=== PATIENT | male | born 1985 | race African-American/Black ===

== ENCOUNTER 2017-08-20 17:35 | Emergency (ER) | payer SELFPAY ==
[2017-08-20 17:42] VITALS: BP 178/103; PULSE 90; RESP 16; TEMP 98.7; O2SAT 99
[2017-08-20 18:40] LABS: AUTOMATED NEUTROPHIL # 3.9 TH/MM3 (1.8-7.7); BASOPHIL % 0.3 % (0.0-2.0); EOSINOPHIL % 0.5 % (0.0-4.0); HEMATOCRIT 43.8 % (39.0-51.0); HEMOGLOBIN 14.9 GM/DL (13.0-17.0); LYMPH % 12.4 % (9.0-44.0); LYMPHOCYTE # 0.6 TH/MM3 (1.0-4.8); MEAN CELL VOLUME 91.4 FL (80.0-100.0); MEAN CORPUSCULAR HGB CONC 33.9 % (32.0-36.0); MEAN PLATELET VOLUME 9.5 FL (7.0-11.0); MONO % 6.2 % (0.0-8.0); MONOCYTE # 0.3 TH/MM3 (0-0.9); NEUT % 80.6 % (16.0-70.0); PLATELET COUNT 230 TH/MM3 (150-450); RED BLOOD COUNT 4.79 MIL/MM3 (4.50-5.90); RED CELL DISTRIBUTION WIDTH 14.1 % (11.6-17.2); WHITE BLOOD COUNT 4.8 TH/MM3 (4.0-11.0)
[2017-08-20 19:00] LABS: BICARBONATE 29.2 MEQ/L (21.0-32.0); CALCIUM 8.5 MG/DL (8.5-10.1); CREATININE 1.02 MG/DL (0.60-1.30)
[2017-08-20] MEDS ORDERED: DICY10 PO (22:52)
[2017-08-20] MEDS ORDERED: ZOFR4TAB PO (22:52)
== END 2017-08-20 19:02 | disposition left against medical advice (07) ==
LOC: NED 17:35
DX: R10.9 Unspecified abdominal pain (principal); Z53.21 Procedure and treatment not carried out due to patient leaving prior to being seen by health care provider
CPT/HCPCS: 80048; 83690; 85025; 85610; 85730; 99281

== ENCOUNTER 2017-08-20 19:12 | Emergency (ER) | payer OTHER ==
[~2017-08-20] VITALS: Ht 182.9 cm; Wt 113.9 kg
[2017-08-20 19:55] VITALS: BP 162/96; PULSE 84; RESP 18; TEMP 99.5; O2SAT 98
[2017-08-20 20:37] VITALS: BP 162/96; PULSE 84; RESP 18; TEMP 99.5; O2SAT 98
[2017-08-20] MEDS ORDERED: SODIUM CHLOR 0.9% 1000 ML INJ 1,000 ML IV ONE (20:45)
[2017-08-20] MEDS ORDERED: KETOROLAC TROMETHAMINE 30 MG/ML (IVP) VIAL IVP ONE (20:45)
[2017-08-20] MEDS ORDERED: SODIUM CHLORIDE 0.9% FLUSH 10 ML FLUSH IVF PRN (20:45)
[2017-08-20] MEDS ORDERED: MORPHINE SULFATE 4 MG/ML INJ IV PUSH ONE (20:45)
[2017-08-20] MEDS ORDERED: ONDANSETRON HCL 4 MG/2 ML VIAL IVP ONE (20:45)
[2017-08-20 20:57] LABS: BASOPHIL # 0.1 TH/MM3 (0-0.2); BASOPHIL % 1.4 % (0.0-2.0); EOSINOPHIL % 0.3 % (0.0-4.0); HEMATOCRIT 43.1 % (39.0-51.0); HEMOGLOBIN 14.1 GM/DL (13.0-17.0); LYMPH % 12.2 % (9.0-44.0); LYMPHOCYTE # 0.6 TH/MM3 (1.0-4.8); MEAN CELL VOLUME 89.3 FL (80.0-100.0); MEAN CORPUSCULAR HEMOGLOBIN 29.3 PG (27.0-34.0); MEAN CORPUSCULAR HGB CONC 32.8 % (32.0-36.0); MEAN PLATELET VOLUME 8.9 FL (7.0-11.0); MONO % 2.8 % (0.0-8.0); MONOCYTE # 0.1 TH/MM3 (0-0.9); NEUT % 83.3 % (16.0-70.0); PLATELET COUNT 215 TH/MM3 (150-450); RED BLOOD COUNT 4.82 MIL/MM3 (4.50-5.90); WHITE BLOOD COUNT 4.8 TH/MM3 (4.0-11.0)
[2017-08-20] MEDS ORDERED: MORPHINE SULFATE 2 MG/ML SYRINGE IM ONE (21:00)
[2017-08-20 21:04] VITALS: BP 171/94; PULSE 82; RESP 18; O2SAT 95
[2017-08-20 21:04] LABS: CHLORIDE 106 MEQ/L (98-107); SODIUM (NA) 137 MEQ/L (136-145)
[2017-08-20 21:08] LABS: ALBUMIN 3.7 GM/DL (3.4-5.0); BICARBONATE 23.2 MEQ/L (21.0-32.0); BLOOD UREA NITROGEN 12 MG/DL (7-18); CALCIUM 8.5 MG/DL (8.5-10.1); GLUCOSE,RANDOM 98 MG/DL (74-106)
[2017-08-20 21:11] LABS: ALT (GPT) 23 U/L (12-78); AST (GOT) 17 U/L (15-37); CREATININE 0.97 MG/DL (0.60-1.30); GLOMERULAR FILTRATION RATE 109 ML/MIN (>89)
[2017-08-20 21:13] LABS: TOTAL BILIRUBIN ADULT 0.5 MG/DL (0.2-1.0); TOTAL PROTEIN 8.1 GM/DL (6.4-8.2)
[2017-08-20 21:14] LABS: ALKALINE PHOSPHATASE 69 U/L (45-117)
--- NOTE | 2017-08-20 21:46 | RADRPT ---
EXAM DATE/TIME: 08/20/2017 21:08 [facility] COMPARISON: No previous studies available for comparison. INDICATIONS : Right flank pain. ORAL CONTRAST: No oral contrast ingested. RADIATION DOSE: 17.11 CTDIvol (mGy) MEDICAL HISTORY : None SURGICAL HISTORY : None. ENCOUNTER: Initial ACUITY: 1 day PAIN SCALE: 8/10 LOCATION: Right flank TECHNIQUE: Volumetric scanning of the abdomen and pelvis was performed. Using automated exposure control and ad justment of the mA and/or kV according to patient size, radiation dose was kept as low as reasonably achievable to obtain optimal diagnostic quality images. DICOM format image data is available electro nically for review and comparison. FINDINGS: Lung bases are clear. No acute findings in the liver, spleen, adrenals, kidneys or pancreas. No calci fied gallstones or biliary ductal dilatation. No free fluid. No bowel obstruction. No adenopathy. Degenerative changes of the sacroiliac joints. CONCLUSION: 1. No acute findings on abdomen and pelvic CT. Specifically no renal calculi or obstructive uropathy. Sriram Solomon MD on August 20, 2017 at 21:40 Board Certified Radiologist. This report was verified electronically.
--- NOTE | 2017-08-20 21:58 | PD ---
HPI . Abdominal pain Chief Complaint: Abdominal Pain Time Seen by Provider: 20:34 Travel History International Travel<30 days: No Contact w/Intl Traveler<30days: No Traveled to known affect area: No History of Present Illness HPI Patient presents with chief complaint of right upper quadrant abdominal pain. Onset was today. Pain is described as constant and sharp and rated 10/10. It is associated with nausea and poor appetite. Pain is unrelieved by Tylenol and ibuprofen. Pain is exacerbated by walking. The patient's reports recent complaints of abdominal pain which were brief and spontaneously resolved. The pain was located on the right side. [facility] Social History Tobacco Use: No Allergies-Medications (Allergen,Severity, Reaction): Coded Allergies: metoclopramide (Verified Adverse Reaction, Unknown, ANXIETY, 08/20/17) prochlorperazine (Verified Adverse Reaction, Unknown, ANXIETY, 08/20/17) Review of Systems Except as stated in HPI: all other systems reviewed are Neg General / Constitutional: Positive: Chills Gastrointestinal: Positive: Nausea, Vomiting, Abdominal Pain, No: Diarrhea Genitourinary: No: Urgency, Frequency, Dysuria Physical Exam Narrative GENERAL: Awake alert. He does appear to be in pain. SKIN: warm/dry. HEAD: Normocephalic. Atraumatic. EYES: Pupils equal and round. No scleral icterus. No injection or drainage. ENT: No nasal bleeding or discharge. Mucous membranes pink and moist. NECK: Trachea midline. Full range of motion without pain.. CARDIOVASCULAR: Regular rate and rhythm. Heart sounds normal. RESPIRATORY: No accessory muscle use. Clear to auscultation. Breath sounds equal bilaterally. GASTROINTESTINAL: Abdomen soft. Right upper quadrant tenderness with a positive Patten sign. No guarding or rebound. Bowel sounds present. Nondistended. : No CVA tenderness. MUSCULOSKELETAL: No obvious deformities. NEUROLOGICAL: Awake and alert. No obvious cranial nerve deficits. Motor grossly within normal limits. Normal speech. PSYCHIATRIC: Appropriate mood and affect; insight and judgment normal. Data Data Last Documented VS Vital Signs Date Time Temp Pulse Resp B/P (MAP) Pulse Ox O2 Delivery O2 Flow Rate FiO2 08/20/17 22:00 18 08/20/17 21:04 82 171/94 (119) 95 Room Air 08/20/17 20:37 99.5 Orders Orders Ua Includes Microscopic (08/20/17 20:36) Ct Abd/Pel W/O Iv Contrast (08/20/17 20:36) Iv Access Insert/Monitor (08/20/17 20:36) Ketorolac Inj (Toradol Inj) (08/20/17 20:45) Ondansetron Inj (Zofran Inj) (08/20/17 20:45) Sodium Chloride 0.9% Flush (Ns Flush) (08/20/17 20:45) Sodium Chlor 0.9% 1000 Ml Inj (Ns 1000 M (08/20/17 20:45) Complete Blood Count With Diff (08/20/17 20:44) Comprehensive Metabolic Panel (08/20/17 20:44) Lipase (08/20/17 20:44) Morphine Inj (Morphine Inj) (08/20/17 20:45) Morphine Inj (Morphine Inj) (08/20/17 21:00) Labs Laboratory Tests Test 08/20/17 20:45 08/20/17 22:13 White Blood Count 4.8 TH/MM3 Red Blood Count 4.82 MIL/MM3 Hemoglobin 14.1 GM/DL Hematocrit 43.1 % Mean Corpuscular Volume 89.3 FL Mean Corpuscular Hemoglobin 29.3 PG Mean Corpuscular Hemoglobin Concent 32.8 % Red Cell Distribution Width 13.0 % Platelet Count 215 TH/MM3 Mean Platelet Volume 8.9 FL Neutrophils (%) (Auto) 83.3 % Lymphocytes (%) (Auto) 12.2 % Monocytes (%) (Auto) 2.8 % Eosinophils (%) (Auto) 0.3 % Basophils (%) (Auto) 1.4 % Neutrophils # (Auto) 4.0 TH/MM3 Lymphocytes # (Auto) 0.6 TH/MM3 Monocytes # (Auto) 0.1 TH/MM3 Eosinophils # (Auto) 0.0 TH/MM3 Basophils # (Auto) 0.1 TH/MM3 CBC Comment DIFF FINAL Differential Comment Blood Urea Nitrogen 12 MG/DL Creatinine 0.97 MG/DL Random Glucose 98 MG/DL Total Protein 8.1 GM/DL Albumin 3.7 GM/DL Calcium Level 8.5 MG/DL Alkaline Phosphatase 69 U/L Aspartate Amino Transf (AST/SGOT) 17 U/L Alanine Aminotransferase (ALT/SGPT) 23 U/L Total Bilirubin 0.5 MG/DL Sodium Level 137 MEQ/L Potassium Level 3.4 MEQ/L Chloride Level 106 MEQ/L Carbon Dioxide Level 23.2 MEQ/L Anion Gap 8 MEQ/L Estimat Glomerular Filtration Rate 109 ML/MIN Lipase 114 U/L Urine Color YELLOW Urine Turbidity CLEAR Urine pH 6.5 Urine Specific [place] 1.025 Urine Protein 30 mg/dL Urine Glucose (UA) NEG mg/dL Urine Ketones TRACE mg/dL Urine Occult Blood NEG Urine Nitrite NEG Urine Bilirubin NEG Urine Urobilinogen 1.0 MG/DL Urine Leukocyte Esterase NEG Urine Squamous Epithelial Cells 0-5 /hpf Microscopic Urinalysis Comment CULT NOT INDICATED MDM Medical Decision Making Medical Screen Exam Complete: Yes Emergency Medical Condition: Yes Differential Diagnosis Differential diagnosis of abdominal pain includes but is not limited to gastritis, pancreatitis, hepatitis, gastroenteritis, constipation, urinary retention, peptic ulcer disease, diverticulitis or appendicitis Narrative Course This patient presents with right upper quadrant abdominal pain. An IV has been started and he has been given IV analgesics and antiemetics. Routine abdominal pain labs have been ordered. CT of the abdomen and pelvis have been ordered. CBC & BMP Diagram 08/20/17 20:45 Total Protein 8.1, Albumin 3.7, Calcium Level 8.5, Alkaline Phosphatase 69, Aspartate Amino Transf (AST/SGOT) 17, Alanine Aminotransferase (ALT/SGPT) 23, Total Bilirubin 0.5, lipase is 114 Last Impressions Abdomen/Pelvis CT 08/20/172035 Signed Impressions: Service Date/Time: August 21:08 - CONCLUSION: 1. No acute findings on abdomen and pelvic CT. Specifically no renal calculi or obstructive uropathy. Sriram Solomon MD UA neg. Diagnosis Primary Impression: Abdominal pain Qualified Codes: R10.11 - Right upper quadrant pain Referrals: Sriram Solis MD 1 week Patient Instructions: Abdominal Hysterectomy (DC), General Instructions Additional Instructions: Follow-up with surgery for further evaluation of your right upper quadrant pain. Zofran for nausea and Bentyl for pain. Med/Other Pt SpecificInfo: Prescription(s) given Scripts Dicyclomine (Bentyl) 10 Mg Cap 20 MG PO QID Y for abdominal pain, #20 CAP 0 Refills for abdominal pain Prov: Domi Vasquez MD 08/20/17 Ondansetron (Zofran) 4 Mg Tab 4 MG PO Q6HR Y for NAUSEA OR VOMITING, #6 TAB 0 Refills Prov: Domi Vasquez MD 08/20/17 Disposition: 01 DISCHARGE HOME Condition: Stable Domi Vasquez MD Aug 20, 2017 21:58
[2017-08-20 22:00] VITALS: BP 157/79; PULSE 80; RESP 18; O2SAT 97
[2017-08-20 22:21] LABS: BILIRUBIN, URINE NEG (NEG); BLOOD, URINE NEG (NEG); GLUCOSE,URINE NEG (NEG); KETONE, URINE TRACE mg/dL (NEG); NITRITE,URINE NEG (NEG); PH, URINE 6.5 (5.0-8.5); URINE COLOR YELLOW (YELLW/STRAW); URINE LEUKOCYTE ESTERASE NEG (NEG)
[2017-08-20 22:38] LABS: SQUAMOUS EPITHELIAL CELL URINE 0-5 /hpf (0-5)
[2017-08-20] MEDS ORDERED: DICY10 PO (22:52)
[2017-08-20] MEDS ORDERED: ZOFR4TAB PO (22:52)
[2017-08-20 23:00] VITALS: BP 170/81; PULSE 80; RESP 18; O2SAT 98
[2017-08-20] MEDS ORDERED: MORPHINE SULFATE 4 MG/ML INJ IV ONE (23:00)
[2017-08-20 23:29] VITALS: RESP 18
[2017-08-21 00:14] VITALS: BP 168/79
[2017-08-22] MEDS ORDERED: TRAM50TA PO (18:26)
[2017-08-22] MEDS ORDERED: ZOFR4TAB PO (18:26)
[2017-08-22] MEDS ORDERED: PROT40TA PO (18:26)
== END 2017-08-21 00:10 | disposition home or self-care (01) ==
LOC: PHED 19:12
DX: R10.11 Right upper quadrant pain (principal); R11.0 Nausea
CPT/HCPCS: 74176; 80053; 81001; 83690; 85025; 96361; 96372; 96374; 96375; 96376; 99284; J1885; J2270; J2405; J7030

== ENCOUNTER 2017-08-22 14:02 | Emergency (ER) | payer OTHER ==
[~2017-08-22] VITALS: Ht 182.9 cm; Wt 113.0 kg
[~2017-08-22 14:02] MED LIST: DICY10 PO; ZOFR4TAB PO
[2017-08-22 14:17] VITALS: BP 174/99; PULSE 82; RESP 16; TEMP 98.5; O2SAT 98
[2017-08-22] MEDS ORDERED: SODIUM CHLOR 0.9% 1000 ML INJ 1,000 ML IV SCH (15:55)
[2017-08-22] MEDS ORDERED: MORPHINE SULFATE 4 MG/ML INJ IV PUSH ONE ×2 (16:00→18:00)
[2017-08-22] MEDS ORDERED: SODIUM CHLORIDE 0.9% FLUSH 10 ML FLUSH IV FLUSH PRN (16:00)
[2017-08-22] MEDS ORDERED: ONDANSETRON HCL 4 MG/2 ML VIAL IVP ONE (16:00)
--- NOTE | 2017-08-22 16:02 | PD ---
HPI Chief Complaint: Musculoskeletal Complaint Time Seen by Provider: 15:49 Travel History International Travel<30 days: No Contact w/Intl Traveler<30days: No Traveled to known affect area: No History of Present Illness HPI 32-year-old male presents to the emergency department for evaluation of worsening right upper quadrant abdominal pain. Patient states his abdominal pain started 1 week ago and has been gradually worsening. Patient was seen in the emergency department 2 days ago. At that time, he had labs and CT of the abdomen/pelvis without contrast completed. Labs showed no acute abnormality. CT also showed no acute abnormality. He was instructed to follow-up with general surgery for his pain. However, he states the pain is worsening with nausea and decreased appetite. He denies any previous abdominal surgeries. Patient states that the pain is worse if he bends over or lays down. No alleviating factors. He reports no chronic medical problems and takes no prescribed medications. He denies any history of the same issue in the past. He states the pain is localized in the right upper quadrant without radiation, 8 /10, aching and throbbing. Moderate severity. PFSH Social History Alcohol Use: No Tobacco Use: No Substance Use: No Allergies-Medications (Allergen,Severity, Reaction): Coded Allergies: metoclopramide (Verified Adverse Reaction, Unknown, ANXIETY, 08/22/17) prochlorperazine (Verified Adverse Reaction, Unknown, ANXIETY, 08/22/17) Reported Meds & Prescriptions Reported Meds & Active Scripts Active Bentyl (Dicyclomine HCl) 10 Mg Cap 20 Mg PO QID PRN for abdominal pain Zofran (Ondansetron HCl) 4 Mg Tab 4 Mg PO Q6HR PRN Review of Systems Except as stated in HPI: all other systems reviewed are Neg Physical Exam Narrative GENERAL: Well-nourished, well-developed male patient, afebrile SKIN: Focused skin assessment warm/dry. HEAD: Normocephalic. Atraumatic EYES: No scleral icterus. No injection or drainage. NECK: Supple, trachea midline. No JVD or lymphadenopathy. CARDIOVASCULAR: Regular rate and rhythm without murmurs, gallops, or rubs. RESPIRATORY: Breath sounds equal bilaterally. No accessory muscle use. Lung sounds are clear to auscultation. GASTROINTESTINAL: Abdomen soft and nondistended. Patient has tenderness over the right upper quadrant with positive Patten sign. MUSCULOSKELETAL: No cyanosis, or edema. BACK: Nontender without obvious deformity. No CVA tenderness. Data Data Last Documented VS Vital Signs Date Time Temp Pulse Resp B/P (MAP) Pulse Ox O2 Delivery O2 Flow Rate FiO2 08/22/17 16:13 97 08/22/17 16:12 75 20 08/22/17 14:17 98.5 Orders Orders Complete Blood Count With Diff (08/22/17 15:55) Comprehensive Metabolic Panel (08/22/17 15:55) Lipase (08/22/17 15:55) Urinalysis - C+S If Indicated (08/22/17 15:55) Us Abdomen Gallbladder (08/22/17 ) Iv Access Insert/Monitor (08/22/17 15:55) Ecg Monitoring (08/22/17 15:55) Oximetry (08/22/17 15:55) Morphine Inj (Morphine Inj) (08/22/17 16:00) Ondansetron Inj (Zofran Inj) (08/22/17 16:00) Sodium Chlor 0.9% 1000 Ml Inj (Ns 1000 M (08/22/17 15:55) Sodium Chloride 0.9% Flush (Ns Flush) (08/22/17 16:00) Morphine Inj (Morphine Inj) (08/22/17 18:00) Pantoprazole Inj (Protonix Inj) (08/22/17 18:30) Labs Laboratory Tests Test 08/22/17 16:10 White Blood Count 3.9 TH/MM3 Red Blood Count 4.56 MIL/MM3 Hemoglobin 13.8 GM/DL Hematocrit 41.1 % Mean Corpuscular Volume 90.0 FL Mean Corpuscular Hemoglobin 30.3 PG Mean Corpuscular Hemoglobin Concent 33.6 % Red Cell Distribution Width 13.3 % Platelet Count 228 TH/MM3 Mean Platelet Volume 8.5 FL Neutrophils (%) (Auto) 49.8 % Lymphocytes (%) (Auto) 30.1 % Monocytes (%) (Auto) 14.1 % Eosinophils (%) (Auto) 2.1 % Basophils (%) (Auto) 3.9 % Neutrophils # (Auto) 1.9 TH/MM3 Lymphocytes # (Auto) 1.2 TH/MM3 Monocytes # (Auto) 0.5 TH/MM3 Eosinophils # (Auto) 0.1 TH/MM3 Basophils # (Auto) 0.2 TH/MM3 CBC Comment DIFF FINAL Differential Comment Blood Urea Nitrogen 8 MG/DL Creatinine 0.98 MG/DL Random Glucose 85 MG/DL Total Protein 7.9 GM/DL Albumin 3.4 GM/DL Calcium Level 8.6 MG/DL Alkaline Phosphatase 62 U/L Aspartate Amino Transf (AST/SGOT) 30 U/L Alanine Aminotransferase (ALT/SGPT) 25 U/L Total Bilirubin 0.2 MG/DL Sodium Level 141 MEQ/L Potassium Level 3.8 MEQ/L Chloride Level 109 MEQ/L Carbon Dioxide Level 25.9 MEQ/L Anion Gap 6 MEQ/L Estimat Glomerular Filtration Rate 108 ML/MIN Lipase 171 U/L MDM Medical Decision Making Medical Screen Exam Complete: Yes Emergency Medical Condition: Yes Medical Record Reviewed: Yes Interpretation(s) US - CONCLUSION: No acute disease. Differential Diagnosis Cholecystitis versus pancreatitis versus gastritis versus peptic ulcer disease Narrative Course 32-year-old male presents to the emergency department for evaluation of right upper quadrant abdominal pain, worsening over the past week. He had negative labs and CT scan done 2 days ago in the emergency department. However, he states the pain is worsening. IV access established. CBC, CMP, lipase, UA ordered and pending. Ultrasound of the right upper quadrant is ordered and pending. Patient is given normal saline 1 L IV bolus, morphine 4 mg IV, Zofran 4 mg IV. CBC shows no acute abnormality. CMP shows no acute abnormality. Lipase is 171. Ultrasound shows no acute disease. I discussed results my attending physician as well as the patient. I will also given Protonix 40 mg IV. He states he is going back to [place] today. He will follow-up with a GI specialist there. Patient will be discharged with a short-term prescription for tramadol, Zofran, Protonix. The patient was discharged in stable condition with instructions, including return instructions and follow up instructions. Diagnosis Primary Impression: Abdominal pain Qualified Codes: R10.11 - Right upper quadrant pain Referrals: Storage Battery Inspector call for appointment Patient Instructions: Abdominal Pain (ED), General Instructions Additional Instructions: Take Protonix daily. Take Zofran as directed as needed for nausea/vomiting. Take tramadol as directed as needed for pain. Cautioned this can make you drowsy so do not drive after taking. Follow up with a lot technician. Return to the emergency department for any acute worsening of symptoms Med/Other Pt SpecificInfo: Prescription(s) given Scripts Tramadol (Tramadol) 50 Mg Tab 50 MG PO Q6H Y for PAIN, #12 TAB 0 Refills Prov: Hillary Navarrete 08/22/17 Ondansetron (Zofran) 4 Mg Tab 4 MG PO Q6HR Y for NAUSEA OR VOMITING, #12 TAB 0 Refills Prov: Hillary Navarrete 08/22/17 Pantoprazole (Protonix) 40 Mg Tab 40 MG PO DAILY for Ulcer Prevention, #30 TAB 0 Refills Prov: Hillary Navarrete 08/22/17 Disposition: 01 DISCHARGE HOME Condition: Stable Hillary Navarrete Aug 22, 2017 16:02
[2017-08-22 16:12] VITALS: BP 167/86; PULSE 75; RESP 20; O2SAT 96
[2017-08-22 16:13] VITALS: O2SAT 97
[2017-08-22 16:16] LABS: AUTOMATED NEUTROPHIL # 1.9 TH/MM3 (1.8-7.7); BASOPHIL # 0.2 TH/MM3 (0-0.2); BASOPHIL % 3.9 % (0.0-2.0); EOSINOPHIL # 0.1 TH/MM3 (0-0.4); EOSINOPHIL % 2.1 % (0.0-4.0); HEMATOCRIT 41.1 % (39.0-51.0); HEMOGLOBIN 13.8 GM/DL (13.0-17.0); LYMPH % 30.1 % (9.0-44.0); LYMPHOCYTE # 1.2 TH/MM3 (1.0-4.8); MEAN CORPUSCULAR HEMOGLOBIN 30.3 PG (27.0-34.0); MEAN CORPUSCULAR HGB CONC 33.6 % (32.0-36.0); MEAN PLATELET VOLUME 8.5 FL (7.0-11.0); MONO % 14.1 % (0.0-8.0); MONOCYTE # 0.5 TH/MM3 (0-0.9); NEUT % 49.8 % (16.0-70.0); PLATELET COUNT 228 TH/MM3 (150-450); RED BLOOD COUNT 4.56 MIL/MM3 (4.50-5.90); RED CELL DISTRIBUTION WIDTH 13.3 % (11.6-17.2); WHITE BLOOD COUNT 3.9 TH/MM3 (4.0-11.0)
[2017-08-22 16:37] LABS: CHLORIDE 109 MEQ/L (98-107); SODIUM (NA) 141 MEQ/L (136-145)
[2017-08-22 16:40] LABS: ALBUMIN 3.4 GM/DL (3.4-5.0); BICARBONATE 25.9 MEQ/L (21.0-32.0); CALCIUM 8.6 MG/DL (8.5-10.1); GLUCOSE,RANDOM 85 MG/DL (74-106)
[2017-08-22 16:41] LABS: BLOOD UREA NITROGEN 8 MG/DL (7-18)
[2017-08-22 16:43] LABS: ALT (GPT) 25 U/L (12-78); AST (GOT) 30 U/L (15-37); CREATININE 0.98 MG/DL (0.60-1.30); GLOMERULAR FILTRATION RATE 108 ML/MIN (>89)
[2017-08-22 16:45] LABS: TOTAL BILIRUBIN ADULT 0.2 MG/DL (0.2-1.0); TOTAL PROTEIN 7.9 GM/DL (6.4-8.2)
[2017-08-22 16:46] LABS: ALKALINE PHOSPHATASE 62 U/L (45-117)
--- NOTE | 2017-08-22 18:11 | RADRPT ---
EXAM DATE/TIME: 08/22/2017 16:16 [facility] COMPARISON: CT ABDOMEN & PELVIS W/O CONTRAST, August 20, 2017, 21:08. INDICATIONS : Right flank pain. MEDICAL HISTORY : Right flank pain x 2 days. SURGICAL HISTORY : None. ENCOUNTER: Initial ACUITY: 2 days PAIN SCORE: 8/10 LOCATION: Right flank MEASUREMENTS: LIVER: 16.9 cm length COMMON DUCT: 6 mm RIGHT KIDNEY: 11.4 x 6.6 x 4.6 cm FINDINGS: LIVER: Normal echotexture without focal lesion or ductal dilatation. COMMON DUCT: No intraluminal mass or stone visualized. GALLBLADDER: Contains no stones, demonstrates no wall thickening or pericholecystic fluid. PANCREAS: The visualized portions are within normal limits. RIGHT KIDNEY: No evidence of stone or mass. There is mild fullness of the renal pelvis. CONCLUSION: No acute disease. David Campbell MD on August 22, 2017 at 18:04 Board Certified Radiologist. This report was verified electronically.
[2017-08-22] MEDS ORDERED: PROT40TA PO (18:26)
[2017-08-22] MEDS ORDERED: ZOFR4TAB PO (18:26)
[2017-08-22] MEDS ORDERED: TRAM50TA PO (18:26)
[2017-08-22] MEDS ORDERED: PANTOPRAZOLE SODIUM 40 MG VIAL IV PUSH ONE (18:30)
== END 2017-08-22 18:48 | disposition home or self-care (01) ==
LOC: PHEFT 14:02
DX: R10.11 Right upper quadrant pain (principal)
CPT/HCPCS: 76705; 80053; 83690; 85025; 96361; 96374; 96375; 96376; 99285; C9113; J2270; J2405; J7030